=== PATIENT | female | born 1970 | race Caucasian/White ===

== ENCOUNTER 2021-06-19 13:01 | Outpatient (CLI) | payer BC, SELFPAY ==
[2021-06-19 13:41] LABS: Anion Gap 10 mmol/L (8-16); Blood Urea Nitrogen 20 mg/dL (7-17); Calcium 9.3 mg/dL (8.4-10.2); Carbon Dioxide 27 mmol/L (22-30); Chloride 101 mmol/L (98-107); Estimated Glomerular Filt Rate > 60; Glucose 84 mg/dL (65-110); Potassium 3.8 mmol/L (3.4-5.0); Sodium 138 mmol/L (137-145)
== END 2021-06-19 13:02 | disposition home or self-care (01) ==
LOC: ANHSURGERY 13:11
PROVIDERS: Anesthesiology; PCP Internal Medicine; Visit Provider Obstetrics & Gynecology Gynecology
DX: Z79.899 Other long term (current) drug therapy (principal); Z01.818 Encounter for other preprocedural examination
CPT/HCPCS: 36415; 80048

== ENCOUNTER 2021-06-24 02:11 | Day surgery (SDC) | payer BC, SELFPAY ==
[2021-06-17 15:36] VITALS: BMI 49.7
--- NOTE | 2021-06-17 15:48 | PC.NURSE ---
Report to the Outpatient Waiting Room, entrance under the green pavilion located off [facility], at time 6:00 on date 06/24/21. OR Time: 7:30. - You and your visitor will be asked a series of questions to screen for COVID 19 for your protection. - A mask is required within the hospital. - Only one visitor is allowed at this time. Patient visitors will be guided where to wait when not with patient. Preoperative COVID Testing Requirements: No COVID Test needed if: (proof is required; if not received patient will have Rapid Test prior to entry) - Patient has received COVID Vaccine at least 14 days prior to procedure date or - Patient has positive COVID test result within last 90 days of surgery date. COVID Test needed if above criteria is not met If not COVID vaccinated a COVID test must be conducted within 72 hours of surgery and patient is asked to isolate self from time of testing until procedure. You will go to the [facility] for your COVID testing. The [facility] is located at the corner of [address] [facility]. You will only be called if COVID results are positive and your surgeon may reschedule your elective surgery date. Patients may have clear liquids (water, carbonated beverages, clear teas, apple juice) until 3 hours prior to surgery with a maximum of 20 ounces. - No food from midnight until time of surgery - Infants may have breast milk until 4 hours before surgery, infant formula 6 hours prior to surgery. - Children will be allowed to drink immediately following surgery. If applicable, please bring a bottle or sippy cup to assist with drinking. Juice, water, soda, and popsicles are readily available. For infants on formula, please bring formula the day of surgery. Pacifiers are allowed. Take the following medications with a SIP of water the morning of surgery: DILTIAZEM, TYLENOL (IF NEEDED) Medications to discontinue per physician: N/A Date to take last dose: N/A Please no make-up, nail slovenian, hairspray, perfume, deodorant, or body powder the day of surgery. No jewelry (including any body piercings) or valuables the day of surgery, leave them at home. Please take a shower or bath the night before, or the morning of, surgery with an antibacterial soap. Wear comfortable, loose fitting clothing. Children are encouraged to wear pajamas. - Jewelry must be removed prior to entering the operating room. Rings and piercings that are not removed may be cut off. - The hospital will not accept responsibility for valuables. - Please leave all valuables, including medications, at home the day of surgery. If you are going home after surgery, a licensed box truck driver must drive you home. - NO public transportation without another adult. - We recommend that an adult stay with you for 24 hours following discharge. - We also recommend that you do not drive, make important decision, drink alcoholic beverages, or take any drugs that were not prescribed by your health care provider for at least 24 hours after your discharge time. For Pediatric surgeries, we recommend two adults accompany the child home (only one inside the building at this time). Follow any additional instructions given to you from your surgeon. Telephone instructions given to EVANS CHASE and asked if any additional questions and then verbalized understanding. Patient advised to call surgeon office or pre surgery nurse liaison [phone] if any additional questions.
[2021-06-24 06:20] VITALS: BP 135/86; PULSE 96; RESP 16; TEMP 36; O2SAT 98
[2021-06-24] MEDS: ACETAMINOPHEN 500 MG TABLET 1000 MG PO (06:34)
--- NOTE | 2021-06-24 06:42 | WPDANESEPPF ---
Anes - Initial Pre Proc Eval Procedure: Operation Date: 06/24/21 07:30 Proposed Procedures p Hysteroscopy Dilation and Curettage - Dee Dee Hampton MD Date/Time: 06/24/21 06:42 Surgeon: Dee Dee Hampton MD Pre Op Diagnosis: abnormal uterine bleeding Patient Data Age: 50 Gender: F Height: 1.63 m Weight: 132.9 kg Last Vital Signs Temp 36.0 C L 06/24/21 06:20 Pulse 96 06/24/21 06:20 Resp 16 06/24/21 06:20 BP 135/86 06/24/21 06:20 Pulse Ox 98 06/24/21 06:20 Allergies Allergy/AdvReac Type Severity Reaction Status Date / Time No Known Allergies Allergy Verified 06/24/21 06:29 Home Medications Medication Instructions Recorded Confirmed Type acetaminophen [Tylenol] 650 mg PO BID PRN 06/17/21 06/24/21 History azelastine 1 spray INTRANASAL BID 06/17/21 06/24/21 History cetirizine [Zyrtec] 10 mg PO DAILY 06/17/21 06/24/21 History cyclobenzaprine [Flexeril] 10 mg PO TID PRN 06/17/21 06/24/21 History diltiazem HCl 180 mg PO DAILY 06/17/21 06/24/21 History famotidine [Pepcid] 20 mg PO BID 06/17/21 06/24/21 History fluticasone propionate [Flonase] 1 spray INTRANASAL DAILY 06/17/21 06/24/21 History lisinopril 10 mg PO DAILY 06/17/21 06/24/21 History montelukast [Singulair] 10 mg PO HS 06/17/21 06/24/21 History paroxetine HCl 30 mg PO HS 06/17/21 06/24/21 History quetiapine 25 mg PO HS 06/17/21 06/24/21 History triamterene-hydrochlorothiazid 1 tablet PO DAILY 06/17/21 06/24/21 History albuterol sulfate 1 inh INHALATION QID PRN 06/24/21 06/24/21 History Patient hx anesthesia problems: none Family hx anesthesia problems: none Results Review: All pre-operative results and documents have been reviewed as part of the pre-operative evaluation. [facility] Past Medical History Medical History Asthma Hiatal hernia History of pulmonary embolism Hypertension URBAN (obstructive sleep apnea) Surgical History Surgical History (Updated 06/24/21 @ 06:42 by Joaquín Almanza MD) H/O cardiac radiofrequency ablation Social History Social History Smoking status: Never smoker Alcohol intake: current Drinks per week: 1 Substance use: never Substance use type: does not use Living arrangements: with family Spiritual care concerns: No Anes - Eval Final PreProcedure Day of Procedure 06/24/21 06:42 Patient weight: super morbidly obese Heart: regular rate and rhythm Lungs: clear to auscultation Airway: Mallampati scale class II Neurological: alert and oriented Last oral intake: >/= 8 hours ASA classification: III Emergent: no Anesthetic plan: proceed Anesthesia type and monitoring: general GIVS and standard monitoring Results Review: All pre-operative results and documents have been reviewed as part of the pre-operative evaluation. Informed Consent: The patient's anesthetic plan and its attendant risks and benefits were discussed with the patient/family/POA. Questions were solicited and answers provided to the satisfaction of the patient/family/POA.
[2021-06-24] MEDS: LACTATED RINGERS 1,000 ML 30 ML IV CONT (06:46)
--- NOTE | 2021-06-24 07:03 | WPDHPUPDATE1 ---
History and Physical Update Update Date/Time: 06/24/21 07:03 History and Physical has been reviewed, including an updated exam of the patient. There are NO changes in the patient's condition. Risks, benefits, and alternatives have been discussed and questions answered. Patient agrees to proceed with procedure.
--- NOTE | 2021-06-24 07:03 | PM.HPGS ---
History of Present Illness History of Present Illness Consent: Risks, benefits, and alternatives have been discussed and questions answered. Patient agrees to proceed with procedure. Chief complaint: abnormal uterine bleeding Narrative: Tegan Hawkins is a 50 year old female with reporting at her annual exam of very heavy cycles in October and December of 2020. In December she bled for a total 14 days changing a pad every 2hours. Both cycles were very heavy with clotting. Patient states she has had no bleeding since that time. Ultrasound showed a heterogeneous texture to the endometrium. It is suspected this is perimenopausal bleeding however the patient's mother did have uterine cancer therefore we are proceeding with workup for the endometrial lining with hysteroscopy D&C. Risks of infection, bleeding, and perforation were reviewed. Possible pathology was also discussed. Patient voices understanding and agrees to proceed. Review of Systems Review of Systems: not repeated day of surgery; patient states no changes in status Constitutional: Constitutional: Reports night sweats PMFSH Past Medical History Medical History (Updated 06/24/21 @ 07:09 by Dee Dee Hampton MD) Asthma Hiatal hernia History of pulmonary embolism Hypertension Morbid obesity BMI is 52 URBAN (obstructive sleep apnea) SVT (supraventricular tachycardia) Surgical History Surgical History (Updated 06/24/21 @ 07:07 by Dee Dee Hampton MD) H/O cardiac radiofrequency ablation H/O sinus surgery x2 History of loop electrical excision procedure (LEEP) Social History Social History Smoking status: Never smoker Alcohol intake: current Drinks per week: 1 Substance use: never Substance use type: does not use Living arrangements: with family Spiritual care concerns: No Meds Home Medications and Allergies Home Medications Medication Instructions Recorded Confirmed Type acetaminophen [Tylenol] 650 mg PO BID PRN 06/17/21 06/24/21 History azelastine 1 spray INTRANASAL BID 06/17/21 06/24/21 History cetirizine [Zyrtec] 10 mg PO DAILY 06/17/21 06/24/21 History cyclobenzaprine [Flexeril] 10 mg PO TID PRN 06/17/21 06/24/21 History diltiazem HCl 180 mg PO DAILY 06/17/21 06/24/21 History famotidine [Pepcid] 20 mg PO BID 06/17/21 06/24/21 History fluticasone propionate [Flonase] 1 spray INTRANASAL DAILY 06/17/21 06/24/21 History lisinopril 10 mg PO DAILY 06/17/21 06/24/21 History montelukast [Singulair] 10 mg PO HS 06/17/21 06/24/21 History paroxetine HCl 30 mg PO HS 06/17/21 06/24/21 History quetiapine 25 mg PO HS 06/17/21 06/24/21 History triamterene-hydrochlorothiazid 1 tablet PO DAILY 06/17/21 06/24/21 History albuterol sulfate 1 inh INHALATION QID PRN 06/24/21 06/24/21 History Allergies Allergy/AdvReac Type Severity Reaction Status Date / Time No Known Allergies Allergy Verified 06/24/21 06:29 Vital Signs Vital Signs - 24 hr 06/24/21 06:20 Temperature 96.8 F L Pulse Rate 96 Respiratory Rate 16 Blood Pressure 135/86 Pulse Oximetry 98 Exam Const: General: alert Orientation/consciousness: patient oriented x3 Resp: Effort & Inspection: normal respiratory effort Auscultation: clear to auscultation bilaterally Cardio: Rate: regular rate Rhythm: regular rhythm GI: GI Palp: Yes Soft to palpation, No Tenderness to palpation present (GI) and No Palpable mass present : External Female Exam: normal external appearance Speculum Exam - Vagina: normal appearance of the vagina and normal vaginal discharge Speculum Exam - Cervix: normal appearance of the cervix Bimanual exam- vagina & uterus: uterine size normal and consistency normal Bimanual Exam- Adnexa, other: normal adnexae and No adnexal tenderness Neuro: General: patient oriented x3 Assessment and Plan Assessment and plan (1) Menorrhagia: Code(s): N92.0 - Excessive and frequent menstruation with regular cycle Status: Acute Assessment
--- NOTE | 2021-06-24 07:43 | P.OP_ITS ---
Procedure Note - Detailed Date of Procedure 06/24/21 Pre-op Diagnosis abnormal uterine bleeding Post-op Diagnosis same Procedure Performed D and C hysteroscopy Surgeon Dee Dee Hampton MD Anesthesia MAC and local Findings External cervical os is stenotic. Uterus sounds to 7cm. Uterus is atrophic. Description of Procedure The patient was taken to the operating room and placed in the dorsal lithotomy position. She was prepped and draped in the usual sterile fashion. [place] speculum was placed in the vagina and cervix not visible. A [place] speculum was requested and placed. Cervix is barely visible and grasped with a tenaculum. The cervix is pulled into the surgical field. Constant traction is required to see the cervix throughout the entire case. The external os is visible but appears to be stenotic. The sound is used and unable to enter the external os. The os Finders are used and her unable to enter the external os. The 11 blade scalpel was used to dejuan-cross the os with good mucus returned. The os Finders are then used and able to enter the cavity. Uterus is sounded to 7cm. The cervix is then serially dilated with Hegar to an 8. The diagnostic hysteroscope was placed with no abnormalities noted. The hysteroscope was r emoved and the medium sharp curette is used to sharply curette the endometrium until a good uterine cry was noted in all areas. Minimal material was obtained consistent with the atrophic appearance. All instruments are removed. Sponge, needle, and instrument counts are correct per OR staff. Patient is awakened from anesthesia and taken to recovery in stable condition. Estimated Blood Loss 5 Drains No Packing No Pathology yes (Endometrial curettings) Complications No immediate complications Condition stable Disposition PACU
[2021-06-24 07:47] VITALS: BP 135/85; PULSE 88; RESP 19; O2SAT 99
[2021-06-24 08:15] VITALS: BP 137/61; PULSE 71; RESP 20
[2021-06-24] MEDS: oxyCODONE HCL (*CRX) 5 MG TAB IR PO (08:17)
[2021-06-24 08:45] VITALS: BP 137/82; PULSE 81; RESP 20
[2021-06-24 09:00] VITALS: BP 115/68; PULSE 74; RESP 20
== END 2021-06-24 09:10 | disposition home or self-care (01) ==
PROVIDERS: PCP Internal Medicine; Visit Provider Obstetrics & Gynecology Gynecology
PROC: 0U5B8ZZ Destruction of Endometrium, Via Natural or Artificial Opening Endoscopic (ICD-10-PCS; CPT 58563; principal; 2021-06-24 07:30)
DX: N92.0 Excessive and frequent menstruation with regular cycle (principal); N85.8 Other specified noninflammatory disorders of uterus; J45.909 Unspecified asthma, uncomplicated; I10 Essential (primary) hypertension; G47.33 Obstructive sleep apnea (adult) (pediatric); Z86.711 Personal history of pulmonary embolism; Z79.51 Long term (current) use of inhaled steroids; E66.01 Morbid (severe) obesity due to excess calories; Z68.43 Body mass index [BMI] 50.0-59.9, adult
CPT/HCPCS: 58558; 36415; 80048; 88305; A9270; J2250; J2704; J3010; J7030; J7120